=== PATIENT | female | born 1960 | race Caucasian/White ===

== ENCOUNTER → 2024-01-15 08:01 | Outpatient (REF) | payer BC, SELFPAY | LOC: HWWDC 08:01 | PROVIDERS: ATTENDING PHYSICIAN Nurse Practitioner | DX: Z12.31 Encounter for screening mammogram for malignant neoplasm of breast (principal) | CPT/HCPCS: 77063; 77067 ==

== ENCOUNTER 2024-10-19 19:07 | Emergency (ER) | payer BC, SELFPAY ==
[2024-10-19 19:08] VITALS: BP 141/72
[2024-10-19 19:25] VITALS: BP 116/71
[2024-10-19 19:34] LABS: % Basophils 0.3 % (0-2); % Eosinophils 0.5 % (0-6); % Immature Granulocytes 0.5 % (0-0.5); % Lymphocytes 15.2 % (20.5-51.1); % Monocytes 7.8 % (1.7-9.3); % Neutrophils 75.7 % (42.2-75.2); Absolute Eosinophils 0.1 10^3/uL (0-0.7); Absolute Immature Granulocytes 0.1 10^3/uL (0-0.05); Absolute Lymphocytes 1.6 10^3/uL (1.2-3.4); Absolute Monocytes 0.8 10^3/uL (0.1-0.6); Absolute Neutrophils 7.9 10^3/uL (1.4-6.5); Hemoglobin 12.9 g/dL (12.0-16.0); Mean Corp Hgb Conc. 34.9 g/dL (33.0-37.0); Mean Corpuscular Hgb 28.5 pg (27.0-31.0); Mean Corpuscular Volume 81.7 fL (81.0-99.0); Mean Platelet Volume 8.7 fL (7.4-10.4); Nucleated Red Blood Cells % 0 %; Platelet Count 278 10^3/uL (130-400); Red Blood Cell Count 4.53 10^6/uL (4.20-5.40); Red Cell Dist. Width 11.4 % (11.5-14.5); White Blood Cell Count 10.4 10^3/uL (4.8-10.8)
--- NOTE | 2024-10-19 19:35 | ED.GENMED ---
History of Present Illness
General
Chief Complaint: Abdominal Pain
Source: patient
Exam Limitations: none
Time Seen by Provider: 10/19/24 19:27
History of Present Illness
History of Present Illness:
This ia 64 year old female that comes in with c/o right upper abd pain. States that she has sharp right upper quadrant pain that started 4 days ago but is getting worse. States that today was the worse. Denies any fever, chills, chest pain, SOB,
nausea, vomiting, diarrhea, headache, dizziness, urinary burning.
Past History
Past History
ED Past Medical History: None; Negative Asthma, HTN, Hypercholesterolemia or NIDDM
ED Past Surgical History: Appendectomy, and Orthopedic (Bunion surgery)
Social History
Tobacco: Non-smoker
Alcohol: Occasional
Personal:
Living: alone
Review of Systems
Review of Systems
All Other Systems: ROS reviewed and negative except as documented in HPI and ROS
Constitutional: Reports no symptoms; Denies fever or chills
EENT: Reports no symptoms
Respiratory: Reports no symptoms; Denies cough or trouble breathing
Cardiac: Reports no symptoms; Denies chest pain
ABD/GI: Reports abdominal pain; Denies nausea, vomiting or diarrhea
: Reports no symptoms
Musculoskeletal: Reports no symptoms
Neurological: Reports no symptoms; Denies dizzy or headache
Psychiatric: Reports no symptoms
Phy Exam
General Physical Exam
General Presentation: mild distress
General age: appears stated age
General Skin: warm and dry
General Habitus: normal
General Mental: alert
General Hydration: dry mucous membranes
ENT Exam
ENT Exam: TM's normal, pharynx normal and neck supple
Eye Exam
Eye Exam: EOMI
Cardiovascular Exam
Cardiovascular Exam: regular rate/rhythm, no edema, no murmur and normal peripheral pulses
Pulmonary Exam
Pulmonary Exam: lungs clear, no respiratory distress, no rales, chest non tender, no crackles, no rhonchi, no wheezing and no cough
Gastrointestinal Exam
Gastrointestinal Exam: normal bowel sounds, soft, no organomegaly, no pulsatile mass, non distended and tender (Epigastric and right upper quadrant tenderness with palpation. )
Musculoskeletal Exam
Musculoskeletal Exam: full ROM and no edema
Skin Exam
Skin Exam: normal color, warm/dry, no rash and no petechia
Psychiatric Exam
Psychiatric Exam: normal mood/affect
Course
Orders/Labs/Results
Orders:
Orders
10/19/24 19:21
Complete Blood Count/With Diff Urgent
Comprehensive Metabolic Panel Urgent
Lipase Urgent
10/19/24 19:34
0.9% Sodium Chloride 1000 ml [Nss] 1,000 ml IV BOLUS
HYDROmorphone [Dilaudid] 0.5 mg IV NOW STA
Ondansetron Injectable [Zofran] 4 mg IV NOW STA
US Abdomen Complete/Upper Urgent
Comment:
Reason For Exam: Epigastric and RUQ tenderness
Abnormal Lab Results
10/19/24
19:21
RDW 11.4 L %
(11.5-14.5)
Abs Immat Gran (auto) 0.1 H 10^3/uL
(0-0.05)
Absolute Neuts (auto) 7.9 H 10^3/uL
(1.4-6.5)
Absolute Monos (auto) 0.8 H 10^3/uL
(0.1-0.6)
Neutrophils % 75.7 H %
(42.2-75.2)
Lymphocytes % 15.2 L %
(20.5-51.1)
Sodium 132 L mmol/L
(135-145)
BUN 21 H mg/dl
(7-17)
Glucose 126 H mg/dl
(70-99)
Total Bilirubin 1.7 H mg/dl
(0.2-1.3)
10/19/24 19:21
10/19/24 19:21
Sodium slightly low. Dehydration. Hyperglycemia, Total feliberto elevation. Lipase normal at 54
Vital Signs
Initial and Last Documented VS:
Initial Vital Signs
Temp Pulse Resp BP Pulse Ox
98.0 F 105 18 141/72 100
10/19/24 19:08 10/19/24 19:08 10/19/24 19:08 10/19/24 19:08 10/19/24 19:08
Last Documented Vital Signs
Temp Pulse Resp BP Pulse Ox
98.0 F 105 18 109/66 93
10/19/24 19:08 10/19/24 19:08 10/19/24 19:08 10/19/24 22:00 10/19/24 22:30
MDM/Problems Addressed
Differential Diagnosis Includes:
Pancreatitis, Gallbladder disease. Gastritis,
MDM/Problems Addressed:
This is a 63 year old female that comes in with c/o right upper abd pain. States that this started 4 days ago and has continued to get worse.
Will get labs and Ultrasound. Will medicate for pain and IV fluids.
Back into see patient. Reviewed CT scan and explained that there is a large liver mass that will need further evaluation with MRI. This could be a malignancy. Offered patient admission due to her pain and patient would rather go home and follow up
as an out patent. Patient to return with increased pain, fever, or any other concerns.
Chronic conditions affecting care:
NA
Acute Exacerbation and/or Progression of Chronic Illness:
NA
*Radiology
Radiology exam reviewed: radiology read reviewed (US-NO evidence of cholelithiasis, Gallbladder wall thickening or biliary tract dilation. MIld hepatomegaly. Small simple left lobe hepatic cyst. Large complex left lobe hepatic mass measuring at
least 10cm in greatest dimension, cannot exclude malignancy. This would be best evaluated with MRI. ) and other (CT cont- pancreas and portions of common bile duct significantly obscured, most likely by overlying bowel gas. )
*Pulse Oximetry
Patient hypoxic: no
*EKG
Interpreted by ED Provider?: NA
Rate: EKG- N/A
*Coremaking Machine Setter Interpretation
Rate: Coremaking Machine Setter- N/A
*Critical Care Note
Total Time (30-74mins, 75-104mins- exclusive of procedures): Not Applicable
ED Attending Note
-
Portions of this chart may have been created with voice recognition software.� Occasional wrong word or��sound alike� substitutions may have occurred due to the inherent limitations of voice recognition software.
Discharge Plan
Departure
Patient Disposition: Home (Routine Discharge)
Date of Disposition: 10/19/24
Time of Disposition: 23:00
Patient with high blood pressure during this ER visit?: No
Condition: Good
Covid-19: Not Applicable
Discharge Problem:
Acute upper abdominal pain
Instructions: Abdominal Pain
Referrals:
Orquidea Jones CRNP [Family Provider] - Follow up in 2-3 days
Activity Restrictions/Additional Instructions:
As discussed, your blood work shows that you are very slightly dehydrated. Please increase your water intake to 8-8oz glasses daily. Your CT shows a liver mass that need further evaluation. Please follow up with the family doctor in the next 2-3
days for further evaluation and an MRI so he will get the results. IF YOU HAVE INCREASED OR CHANGING ABDOMINAL PAIN, FEVER, VOMITING, OR YOU HAVE ANY OTHER CONCERNS PLEASE RETURN TO THE EMERGENCY ROOM.
Interventions
Interventions:
*Risk Screen - Suicide Last Done: 10/19/24 19:08
*General Assessment Last Done: 10/19/24 19:08
*Neglect/Abuse Screening Last Done: 10/19/24 19:08
*ED COVID-19 Vaccine History Last Done: 10/19/24 19:12
JD-[id number]-[id number] Assessment Last Done: 10/19/24 19:27
Discharge Date and Time
Print Language: [id number]
[2024-10-19] MEDS: ZOFRAN 4 MG IV (19:38)
[2024-10-19] MEDS: DILAUDID 0.5 MG IV (19:38)
[2024-10-19] MEDS: NSS 1000 IV (19:38)
[2024-10-19 19:55] LABS: ALT (SGPT) 28 U/L (0-35); AST (SGOT) 32 U/L (14-36); Albumin 3.8 g/dl (3.5-5.0); Alkaline Phosphatase 95 U/L (38-126); Blood Urea Nitrogen 21 mg/dl (7-17); Calcium 8.8 mg/dl (8.4-10.2); Carbon Dioxide 25 mmol/L (22-30); Chloride 98 mmol/L (98-107); Glucose 126 mg/dl (70-99); Lipase 57 U/L (23-300); Potassium 3.8 mmol/L (3.5-5.1); Sodium 132 mmol/L (135-145); Total Bilirubin 1.7 mg/dl (0.2-1.3); Total Protein 6.8 g/dl (6.3-8.2); eGFR > 60.00
[2024-10-19 20:00] VITALS: BP 123/63
[2024-10-19 21:47] VITALS: BP 114/70
[2024-10-19 22:00] VITALS: BP 109/66
== END 2024-10-19 23:20 | disposition home or self-care (01) ==
LOC: EMR 19:07
PROVIDERS: Emergency Medicine; EMERGENCY PHYSICIAN Student in an Organized Health Care Education/Training Program; FAMILY PHYSICIAN Nurse Practitioner
DX: R10.11 Right upper quadrant pain (principal); E86.0 Dehydration; Z90.49 Acquired absence of other specified parts of digestive tract
CPT/HCPCS: 99284; 96374; 96375; 96361; 76700; 80053; 83690; 85025

== ENCOUNTER → 2024-10-27 07:48 | Outpatient (REF) | payer BC, SELFPAY | LOC: MRI 3T 07:48 | PROVIDERS: ATTENDING PHYSICIAN Physician Assistant Medical | DX: R10.11 Right upper quadrant pain (principal); R93.5 Abnormal findings on diagnostic imaging of other abdominal regions, including retroperitoneum; R17 Unspecified jaundice; R79.89 Other specified abnormal findings of blood chemistry | CPT/HCPCS: 74183; A9575 ==

== ENCOUNTER → 2025-05-12 07:56 | Outpatient (REF) | payer BC, SELFPAY | LOC: HWWDC 07:56 | PROVIDERS: ATTENDING PHYSICIAN Nurse Practitioner | DX: Z12.31 Encounter for screening mammogram for malignant neoplasm of breast (principal) | CPT/HCPCS: 77063; 77067 ==

== ENCOUNTER → 2025-07-27 19:09 | Outpatient (REF) | payer BC, SELFPAY | LOC: MRI 19:09 | PROVIDERS: ATTENDING PHYSICIAN Nurse Practitioner | DX: R16.0 Hepatomegaly, not elsewhere classified (principal) | CPT/HCPCS: 74183; A9575 ==